=== PATIENT | male | born 1945 | race Caucasian/White ===

== ENCOUNTER 2018-07-01 03:07 | Observation (INO) ==
[2018-07-01] MEDS ORDERED: Ipratropium/Albuterol Neb 3 ML IH ONE (03:13)
[2018-07-01] MEDS ORDERED: methylPREDNISolone 125 MG/2 ML VIAL IVP ONE (03:13)
--- NOTE | 2018-07-01 03:26 | Emergency Department Note ---
Disposition Clinical Impression: Elevated troponin, Acute exacerbation of chronic obstructive airways disease Dyspnea Qualifiers: Dyspnea type: unspecified Qualified Code(s): R06.00 - Dyspnea, unspecified Disposition: Admitted As Inpatient Condition: Fair Forms: ED Satisfaction Letter General Adult HPI - General Stated complaint: SoB Time Seen by Provider: 07/01/18 03:12 Source: patient, EMS Mode of arrival: EMS Limitations: no limitations Nursing Notes Reviewed: Yes Vital Signs Reviewed: Yes - History of Present Illness HPI Narrative: Patient is a 72-year-old male with past medical history including COPD on 2-3 L of oxygen at home, hypertension, coronary artery disease with one stent placement, presenting with chief complaint of shortness of breath since midnight. The patient states he was admitted for approximately one month in [facility] for COPD exacerbation, bronchitis, pneumonia. He states he was discharged on oral prednisone and azithromycin which she finished up one week ago. He recently returned back to [place] and in good health. He states when he woke up at midnight he was starting to feel short of breath. He complains of a new productive cough. Denies fevers, chills, chest pain. Shortness of breath worsens with exertion. He did not take any breathing treatments at home and went [place] [facility]. As the [place] [facility] [place] closed, he was transferred via EMS to [facility]. He received one breathing treatment in route and states he feels better. Pain Scale: 0 - Related Data Allergies Allergy/AdvReac Type Severity Reaction Status Date / Time No Known Allergies Allergy Verified 07/01/18 03:19 All systems ED: reviewed and negative except as stated. Review of Systems: As Per HPI Constitutional: Denies: fever, chills Cardiovascular: Denies: chest pain, palpitations Respiratory: Reports: cough, dyspnea Gastrointestinal: Denies: abdominal pain, nausea, vomiting Neurological: Denies: headache, weakness Past Medical History - Past Medical History Attestation: Yes The following information was validated with the patient. Source: patient Medical history: Reports: COPD Psychiatric history: Reports: no psych history - Social History Smoking Status: Former smoker Smokeless Tobacco Status: No Alcohol use: Reports: none Drug use: Reports: none Physical Exam - General Limitations: no limitations General appearance: alert, in no apparent distress - Head Head exam: atraumatic, normocephalic, normal inspection - Eye Eye exam: Present: normal appearance, EOMI - ENT ENT exam: normal exam, normal oropharynx, mucous membranes moist - Neck Neck exam: Present: normal inspection, full ROM, trachea midline - Respiratory Respiratory exam: Present: other (Mild bilateral expiratory wheezing and diminished breath sounds) - Cardiovascular Cardiovascular exam: Present: regular rate, normal rhythm, normal heart sounds - Abdominal Exam Abdominal exam: Present: soft, Non-Tender. Absent: tenderness, distention, guarding, rebound, rigidity - Extremities Exam Extremities exam: Present: normal inspection, full ROM, normal capillary refill. Absent: tenderness, pedal edema, calf tenderness - Neurological Exam Neurological exam: Present: alert, oriented X3 - Psychiatric Psychiatric exam: Present: normal affect, normal mood - Skin Skin exam: Present: warm, dry, intact, normal color Course Vital Signs Temperature 98.2 F 07/01/18 03:15 Pulse Rate 104 07/01/18 03:15 Respiratory Rate 20 07/01/18 03:15 Blood Pressure 167/80 07/01/18 03:15 O2 Sat by Pulse Oximetry 97 07/01/18 03:15 Temperature 98.2 F 07/01/18 03:15 Pulse Rate 104 07/01/18 03:15 Respiratory Rate 14 07/01/18 03:46 Blood Pressure 167/80 07/01/18 03:15 O2 Sat by Pulse Oximetry 98 07/01/18 03:46 Oxygen Delivery Oxygen Delivery Nasal Cannula Medical Decision Making - [facility] Narrative Medical decision making narrative: Patient presenting with shortness of breath or new cough. He is afebrile. Oxygenating on his home oxygen at 3 L and is not hypoxic. Likely has COPD exacerbation. We will give methylprednisolone, DuoNeb treatments obtain x-ray. 0425 Chest x-ray shows trace left pleural effusion. There are no infiltrates or pulmonary hypertension. CBC with no leukocytosis. Patient remains on 2 L of oxygen and not hypoxic. Feeling better after Duoneb treatments. 0435 EKG shows no acute ischemic changes. He denies chest pain. Troponin is elevated 0.07. No prior labs to compare to. Patient will be admitted for ACS evaluation. Hospitalist will be consulted. Aspirin will be given. 05:[address] Montenegro who accepts admission. - Medical Records Medical records reviewed: Yes I reviewed the patient's medical records. - Lab Data Lab results reviewed: Yes I reviewed the patient's lab results. Result diagrams: 07/01/18 03:50 07/01/18 03:50 Lab Results 07/01/18 07/01/18 Range/Units 03:50 03:50 WBC 9.8 (4.3-11.1) K/mcL RBC 4.96 (4.19-5.50) M/mcL Hgb 14.6 (12.9-16.9) g/dL Hct 46.8 (37.5-50.1) % MCV 94.4 (83.0-100.0) fL MCH 29.4 (28.0-33.3) pg MCHC 31.2 L (31.6-35.5) g/dL RDW 21.4 H (11.5-14.5) % Plt Count 174 (140-400) K/mcL MPV 11.7 (9.4-12.4) fL Immature Gran % 0.4 (0-4) % Seg Neutrophils % 63.3 % Lymphocytes % 21.1 % Monocytes % 11.2 % Eosinophils % 3.4 % Basophils % 0.6 % Neutrophils # 6.2 (1.6-8.9) K/mcL Lymphocytes # 2.1 (0.6-4.6) K/mcL Monocytes # 1.1 (0.0-1.3) K/mcL Eosinophils # 0.3 (0.0-0.6) K/mcL Basophils # 0.1 (0.0-0.2) K/mcL Sodium 144 (136-145) mEq/L Potassium 4.0 (3.5-5.1) mEq/L Chloride 109 H (98-107) mEq/L Carbon Dioxide 28 (23-29) mEq/L BUN 13 (8-23) mg/dL Creatinine 1.24 (0.70-1.30) mg/dL Est GFR ( Amer) > 60 (> 60) Est GFR (Non-Af Amer) 57 L (> 60) BUN/Creatinine Ratio 10 (6-26) Glucose 100 (70-105) mg/dL Calculated Osmolality 298 (280-300) Calcium 8.5 L (8.6-10.3) mg/dL Troponin I 0.07 H* (< 0.04) ng/mL - Radiology Data Radiology results reviewed: Yes I reviewed the patient's radiology results. Chest X-Ray 07/01/18 03:13 IMPRESSION: Trace left pleural effusion. No focal airspace disease. D/ / Rodo Hillman / Rodo Hillman Interpreting Provider: Rodo Hillman - EKG Data EKG #1 EKG attestation: Yes I reviewed and interpreted this EKG. EKG results narrative: EKG obtained at 0 326 shows sinus rhythm with heart rate 96. MA interval 137, QRS duration 87, QT 377, QTC 477. Left posterior fascicular block. No ST elevation, no ST depression. No old EKG to compare to. Attestation Statement - Attestation Attestation: Dr Hsieh note: Pt seen in conjunction w/ ER Resident Dr Olson; please see her charting for complete documentation. I spent [id number] time with the patient and I agree with patient's treatment and disposition. Acute sob and diaphoresis after mi dnight tonight; known/ prior CAD w/ stents placed years ago;
[2018-07-01 04:02] LABS: Basophils # 0.1 K/mcL (0.0-0.2); Basophils % 0.6 %; Eosinophils # 0.3 K/mcL (0.0-0.6); Eosinophils % 3.4 %; Hematocrit 46.8 % (37.5-50.1); Hemoglobin 14.6 g/dL (12.9-16.9); Immature Granulocytes % 0.4 % (0-4); Lymphocytes # 2.1 K/mcL (0.6-4.6); Lymphocytes % 21.1 %; Mean Corpuscular HGB Conc 31.2 g/dL (31.6-35.5); Mean Corpuscular Hemoglobin 29.4 pg (28.0-33.3); Mean Corpuscular Volume 94.4 fL (83.0-100.0); Mean Platelet Volume 11.7 fL (9.4-12.4); Monocytes # 1.1 K/mcL (0.0-1.3); Monocytes % 11.2 %; Neutrophils # 6.2 K/mcL (1.6-8.9); Platelet Count 174 K/mcL (140-400); Red Blood Count 4.96 M/mcL (4.19-5.50); Red Cell Distribution Width 21.4 % (11.5-14.5); Segmented Neutrophils % 63.3 %
[2018-07-01 04:37] LABS: BUN/Creatinine Ratio 10 (6-26); Blood Urea Nitrogen 13 mg/dL (8-23); Calcium 8.5 mg/dL (8.6-10.3); Carbon Dioxide 28 mEq/L (23-29); Chloride 109 mEq/L (98-107); Glucose 100 mg/dL (70-105); Osmolality,Calculated 298 (280-300); Sodium 144 mEq/L (136-145); Troponin I 0.07 ng/mL (< 0.04); eGFR For Non-African Americans 57 (> 60)
[2018-07-01] MEDS ORDERED: Aspirin 325 MG TABLET PO ONE (05:12)
[2018-07-01] MEDS ORDERED: *HR* HYDROcodone/Acet 5/325 mg TABLET PO PRN (07:27)
[2018-07-01] MEDS ORDERED: Naloxone 0.4 MG/ML INJ IVP PRN (07:27)
[2018-07-01] MEDS ORDERED: Acetaminophen 325 MG TABLET PO PRN (07:27)
--- NOTE | 2018-07-01 08:32 | Internal Med History&Physical ---
Date of Encounter: 07/01/18 Time of Encounter: 08:29 Internal Medicine - H&P: HPI Chief complaint: Dyspnea Admitted From: Emergency Dept Plans for Post Hospital Care: Home History of present illness: Mr. Hunter is a 72 year old male with past medical history including COPD on 2- 3 L of oxygen at home, hypertension, coronary artery disease with one stent placement who presents with shortness of breath since midnight. He reports productive cough. He hears himself wheezing. He is nauseous. He recently was in [place] and admitted for COPD exacerbation. Recently finished prednison and azithromax about a week ago. He recently returned back to [place]. He woke up at midnight and he was short of breath. Denies any headache, fevers, chills, vomiting, chest pain, abdominal pain, diarrhea, constipation, urinary symptoms, or neurological symptoms symptoms, dizziness, lower extremity edema. In the ED he was hemodynamically stable. Chest x-ray was unremarkable. He was given IV steroids and nebs and started feeling better. Labs were mostly unremarkable but he did have somewhat elevated troponins of 0.07 but denies any chest pain. EKG without any acute ischemic changes. He was given aspirin however. Past Med Surg Social Fam HX - Past Medical History Medical history: COPD Psychiatric history: no psych history - Social History Smoking Status: Former smoker Smokeless Tobacco Status: No Alcohol use: none Drug use: none Internal Medicine - H&P: Meds Allergy/AdvReac Type Severity Reaction Status Date / Time No Known Allergies Allergy Verified 07/01/18 03:19 All Systems PM: A 10-system review of systems was performed and is negative for pertinent findings except as documented above in the HPI. Review of systems: All systems reviewed are negative except for as mentioned above - Constitutional Vitals: Temp Pulse Resp BP Pulse Ox 97.8 F 94 18 166/70 95 07/01/18 07:00 07/01/18 07:00 07/01/18 07:00 07/01/18 07:00 07/01/18 07:00 Exam: GEN: NAD HEENT: AT, NC, No cyanosis, oral mucosa is moist, No JVD Lymphatics: No lymphadenoapthy Eyes: Extrocular muscles intact, anicteric CVS:RRR. S1, S2, No m/r/g RESP: Diminished with scattered posterior wheezes ABD: Soft, NT, ND, +BS EXT: No edema, No rashes, 2+ DP NEURO: Nonfocal, CN II-XII intact, No focal motor or sensory deficits Psych: Cooperative, Not anxious or depressed Internal Med - H&P Results - Labs CBC & Chem 7: 07/01/18 03:50 07/01/18 03:50 Labs: Short CBC 07/01/18 Range/Units 03:50 WBC 9.8 (4.3-11.1) K/mcL Hgb 14.6 (12.9-16.9) g/dL Hct 46.8 (37.5-50.1) % Plt Count 174 (140-400) K/mcL Neutrophils # 6.2 (1.6-8.9) K/mcL BMP 07/01/18 03:50 Sodium 144 Potassium 4.0 Chloride 109 H Carbon Dioxide 28 BUN 13 Creatinine 1.24 Glucose 100 Calcium 8.5 L Cardiac Enzymes 07/01/18 Range/Units 03:50 Troponin I 0.07 H* (< 0.04) ng/mL - Impressions ITS Impressions Chest X-Ray 07/01/18 03:13 IMPRESSION: Trace left pleural effusion. No focal airspace disease. D/ / Rodo Hillman / Rodo Hillman Interpreting Provider: Rodo Hillman - Assessment and Plan (1) Acute exacerbation of chronic obstructive airways disease Current Visit: Yes Status: Acute Assessment and plan: Patient seems very uncomfortable but surprsingly is not hypoxic in the room on room air. He is O2 dependent. He is significantly wheezy. Will put on IV steroids Q8hrs. Nebs scheduled. Check sputum. check resp panel. Recently finished a course of azithromax. (2) Elevated troponin Current Visit: Yes Status: Acute Assessment and plan: Likely NSTEMI type II. No concerning EKG changes. Will trend for now. (3) HTN (hypertension) Current Visit: Yes Status: Acute Assessment and plan: c/w home meds Qualifiers: Hypertension type: essential hypertension Qualified Code(s): I10 - Essential (primary) hypertension (4) CAD (coronary artery disease) Current Visit: Yes Status: Acute Assessment and plan: c/w home meds Qualifiers: Coronary Disease-Associated Artery/Lesion type: [place] artery [place] vs. transplanted heart: [place] heart Associated angina: without angina Qualified Code(s): I25.10 - Atherosclerotic heart disease of [place] coronary artery without angina pectoris (5) Tobacco abuse Current Visit: Yes Status: Acute Assessment and plan: nicotine patch ordered (6) DVT prophylaxis Current Visit: Yes Status: Acute Assessment and plan: heparin SQ - Time Spent With Patient Total time spent is greater than 50% in coordination of care (as documented) at patient's floor/unit and/or counseling patient:
[2018-07-01] MEDS: Ondansetron 4 MG/2 ML VIAL IVP PRN ×2 (08:54→13:48)
[2018-07-01] MEDS: methylPREDNISolone 125 MG/2 ML VIAL IVP SCH ×2 (08:54→16:56)
[2018-07-01] MEDS: Ipratropium/Albuterol Neb 3 ML IH SCH ×3 (10:01→21:26)
[2018-07-01] MEDS: Nicotine 21 MG PATCH.TD24 TD SCH (11:38)
[2018-07-01] MEDS: *HR* Heparin 5,000 UNIT/ML VIAL SQ SCH ×2 (13:52→21:01)
[2018-07-01] MEDS: Ascorbic Acid 500 MG TABLET PO SCH (16:56)
--- NOTE | 2018-07-01 17:33 | Electrocardiograph Report ---
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
[2018-07-01 18:58] LABS: ABG Base Excess 4 mEq/L (-2 to 3); ABG HCO3 32 mEq/L (21-27); ABG Oxygen Saturation 94 % (95-98); ABG PCO2 58 mmHg (35-45); ABG PH 7.35 pH Units (7.32-7.45); ABG PO2 74 mmHg (85-104); ABG TCO2 34 mEq/L (20-26)
[2018-07-01 19:38] LABS: Adenovirus Not Detected (Not Detect); Bordetella Pertussis Not Detected (Not Detect); Chlamydophila pneumoniae Not Detected (Not Detect); Coronavirus 229E Not Detected (Not Detect); Coronavirus HKU1 Not Detected (Not Detect); Coronavirus NL63 Not Detected (Not Detect); Coronavirus OC43 Not Detected (Not Detect); Human Metapneumovirus Not Detected (Not Detect); Human Rhinovirus/Enterovirus Not Detected (Not Detect); Influenza A Subtype 2009 H1 Not Detected (Not Detect); Influenza A Untypeable Not Detected (Not Detect); Influenza B Not Detected (Not Detect); Mycoplasma pneumoniae Not Detected (Not Detect); Parainfluenza Virus 1 Not Detected (Not Detect); Parainfluenza Virus 2 Not Detected (Not Detect); Parainfluenza Virus 3 Not Detected (Not Detect); Parainfluenza Virus 4 Not Detected (Not Detect); Respiratory Syncytial Virus Not Detected (Not Detect)
[2018-07-01] MEDS: 0.9 % Sodium Chloride 1,000 ML IVC SCH (20:13)
[2018-07-01] MEDS ORDERED: FERROUS GLUCONATE 324 MG PO SCH (21:00)
[2018-07-01] MEDS ORDERED: Ascorbic Acid 500 MG TABLET PO SCH (21:00)
[2018-07-01] MEDS: Budesonide/Formoterol 160/4.5 1 PUFF INH IH SCH (21:26)
[2018-07-02] MEDS: methylPREDNISolone 125 MG/2 ML VIAL IVP SCH ×2 (01:34→08:35)
[2018-07-02] MEDS: Ipratropium/Albuterol Neb 3 ML IH SCH ×4 (04:24→22:12)
[2018-07-02] MEDS: 0.9 % Sodium Chloride 1,000 ML IVC SCH (04:53)
[2018-07-02] MEDS: *HR* Heparin 5,000 UNIT/ML VIAL SQ SCH ×3 (04:54→20:53)
[2018-07-02 05:23] LABS: BUN/Creatinine Ratio 14 (6-26); Blood Urea Nitrogen 16 mg/dL (8-23); Carbon Dioxide 27 mEq/L (23-29); Chloride 105 mEq/L (98-107); Glucose 123 mg/dL (70-105); Magnesium 2.1 mg/dL (1.6-2.6); Osmolality,Calculated 297 (280-300); Potassium 5.2 mEq/L (3.5-5.1); Sodium 142 mEq/L (136-145); eGFR For Non-African Americans > 60 (> 60)
[2018-07-02 05:27] LABS: Basophils % 0.1 %; Hematocrit 47.1 % (37.5-50.1); Hemoglobin 14.9 g/dL (12.9-16.9); Immature Granulocytes % 1.1 % (0-4); Immature Platelets 7.7 % (1.1-6.1); Lymphocytes # 0.5 K/mcL (0.6-4.6); Lymphocytes % 6.6 %; Mean Corpuscular HGB Conc 31.6 g/dL (31.6-35.5); Mean Corpuscular Hemoglobin 29.4 pg (28.0-33.3); Mean Corpuscular Volume 92.9 fL (83.0-100.0); Mean Platelet Volume 12.2 fL (9.4-12.4); Monocytes # 0.4 K/mcL (0.0-1.3); Monocytes % 5.2 %; Neutrophils # 6.9 K/mcL (1.6-8.9); Platelet Count 133 K/mcL (140-400); Red Blood Count 5.07 M/mcL (4.19-5.50); Red Cell Distribution Width 20.4 % (11.5-14.5)
[2018-07-02] MEDS ORDERED: Saline Nasal Spray 44 ML BOTTLE NS PRN (08:00)
--- NOTE | 2018-07-02 08:24 | Internal Med Progress Note ---
<Azalia Taveras - Last Filed: 07/02/18 12:03> Hospitalist Progress Note - Encounter Date of Encounter: 07/02/18 - Exam Vitals: Temp Pulse Resp BP Pulse Ox 98.5 F 108 18 122/62 90 07/02/18 11:22 07/02/18 11:22 07/02/18 11:22 07/02/18 11:22 07/02/18 11:22 - Assessment and Plan (1) Elevated troponin Current Visit: Yes Status: Acute (2) Acute exacerbation of chronic obstructive airways disease Current Visit: Yes Status: Acute (3) Tobacco abuse Current Visit: Yes Status: Acute (4) HTN (hypertension) Current Visit: Yes Status: Acute (5) CAD (coronary artery disease) Current Visit: Yes Status: Acute (6) DVT prophylaxis Current Visit: Yes Status: Acute (7) Chronic respiratory failure Current Visit: Yes Status: Acute - Time Spent with Patient Total time spent is greater than 50% in coordination of care (as documented) at patient's floor/unit and/or counseling patient: Internal Medicine: Result - Labs CBC & Chem 7: 07/02/18 04:19 07/02/18 09:03 Labs: Short CBC 07/02/18 Range/Units 04:19 WBC 7.9 (4.3-11.1) K/mcL Hgb 14.9 (12.9-16.9) g/dL Hct 47.1 (37.5-50.1) % Plt Count 133 L (140-400) K/mcL Neutrophils # 6.9 (1.6-8.9) K/mcL BMP 07/02/18 07/02/18 04:19 09:03 Sodium 142 Potassium 5.2 H 4.9 Chloride 105 Carbon Dioxide 27 BUN 16 Creatinine 1.14 Glucose 123 H Calcium 9.0 Cardiac Enzymes 07/01/18 Range/Units 15:05 Troponin I < 0.03 (< 0.04) ng/mL - ABG Interpretation ABG results: ABG ABG pH 7.35 pH Units (7.32-7.45) 07/01/18 18:55 ABG pCO2 58 mmHg (35-45) H 07/01/18 18:55 ABG pO2 74 mmHg (85-104) L 07/01/18 18:55 ABG O2 Saturation 94 % (95-98) L 07/01/18 18:55 - Impressions Impressions Chest X-Ray 07/01/18 03:13 IMPRESSION: Trace left pleural effusion. No focal airspace disease. D/ / Rodo Hillman / Rodo Hillman Interpreting Provider: Rodo Hillman Consult Discharge Plan - Plan [facility]errals: [facility]Primary Care Provider[facility] - <Payal Mcguire N - Last Filed: 07/02/18 13:59> Hospitalist Progress Note - Encounter Date of Encounter: 07/02/18 Time of Encounter: 08:24 - Subjective Interval History: Mr. Hunter is a 72-year-old male with a history of COPD who was admitted to the hospital for management of COPD exacerbation. On evaluation this morning, patient reports improvement in symptoms after receiving nebulized breathing treatments, and reports resolution of wheezes at this time. He is currently requiring supplemental oxygen via nasal cannula; however, patient states that he only uses oxygen at home during the night. He reports having recently been bruno ated with a course of azithromycin on an outpatient basis, which she states did not seem to help his breathing. At this time, patient denies any wheezes, shortness of breath, cough, or other respiratory symptoms. He denies any acute complaints or concerns at this time. - Exam Vitals: Temp Pulse Resp BP Pulse Ox 97.9 F 111 16 144/68 91 07/02/18 07:44 07/02/18 07:44 07/02/18 07:44 07/02/18 07:44 07/02/18 07:44 Exam: GENERAL: Well-developed, well-nourished adult male in no acute distress. HEENT: Atraumatic and normocephalic. CARDIOVASCULAR: Regular rate and rhythm. S1 and S2 present. No murmurs, gallops, or rubs. RESPIRATORY: Diffusely decreased breath sounds bilaterally without wheezes. Chest rises and falls symmetrically without accessory muscle use. GASTROINTESTINAL: Abdomen is soft, nontender, nondistended. Bowel sounds present 4 quadrants. EXTREMITIES: No clubbing, cyanosis, or edema. SKIN: Warm, dry, and intact. NEUROLOGIC: Alert and oriented x3. Patient is cooperative with exam and answers questions appropriately. No apparent focal deficits. PSYCHIATRIC: Appropriate mood and affect. - Assessment and Plan (1) Acute exacerbation of chronic obstructive airways disease Current Visit: Yes Status: Acute Assessment and Plan: Suspect acute exacerbation of COPD. Patient reports waking in the middle the night with significant wheezing and shortness of breath. He did receive nebulized breathing treatments emergency department, which improved his symptoms. On evaluations morning, patient reports that he has not had any wheezing, and states that he is feeling well. He denies any ongoing shortness of breath. He reports that he uses supplemental oxygen at home at night. He does note significant shortness of breath associated with periods of exertion. - D/c IV steroids; start prednisone 40mg BID. Anticipate discharge with two-week taper of oral steroids. - Continue duonebs Q6H scheduled. Patient would benefit from a prescription for duonebs on hospital discharge. - Continue supplemental oxygen therapy as needed to maintain oxygen saturation 88-92%. (2) Elevated troponin Current Visit: Yes Status: Acute Assessment and Plan: Suspect type II NSTEMI. Initial troponin noted to be elevated at 0.07; however, repeat troponins demonstrated downward trend. Patient denied any chest pain, and had no EKG changes. - Continue telemetry monitoring. - Obtain repeat EKG and troponin if patient begins to have symptoms concerning for ACS. (3) HTN (hypertension) Current Visit: Yes Status: Acute Assessment and Plan: - Continue home medication of metoprolol 25mg. (4) CAD (coronary artery disease) Current Visit: Yes Status: Acute Assessment and Plan: - Continue home medication of atorvastatin 20mg. (5) Tobacco abuse Current Visit: Yes Status: Acute Assessment and Plan: - Tobacco cessation counseling provided. - Nicotine patch TD QD. (6) DVT prophylaxis Current Visit: Yes Status: Acute Assessment and Plan: - Heparin SQ. - Time Spent with Patient Total time spent is greater than 50% in coordination of care (as documented) at patient's floor/unit and/or counseling patient: Internal Medicine: Result - Labs CBC & Chem 7: 07/02/18 04:19 07/02/18 09:03 Labs: Short CBC 07/02/18 Range/Units 04:19 WBC 7.9 (4.3-11.1) K/mcL Hgb 14.9 (12.9-16.9) g/dL Hct 47.1 (37.5-50.1) % Plt Count 133 L (140-400) K/mcL Neutrophils # 6.9 (1.6-8.9) K/mcL BMP 07/02/18 04:19 Sodium 142 Potassium 5.2 H Chloride 105 Carbon Dioxide 27 BUN 16 Creatinine 1.14 Glucose 123 H Calcium 9.0 Cardiac Enzymes 07/01/18 07/01/18 Range/Units 09:13 15:05 Troponin I 0.05 H* < 0.03 (< 0.04) ng/mL - ABG Interpretation ABG results: ABG ABG pH 7.35 pH Units (7.32-7.45) 07/01/18 18:55 ABG pCO2 58 mmHg (35-45) H 07/01/18 18:55 ABG pO2 74 mmHg (85-104) L 07/01/18 18:55 ABG O2 Saturation 94 % (95-98) L 07/01/18 18:55 <Azalia Taveras M - Last Filed: 07/02/18 12:03> (4) HTN (hypertension) Qualifiers: Hypertension type: essential hypertension Qualified Code(s): I10 - Essential (primary) hypertension (5) CAD (coronary artery disease) Qualifiers: Coronary Disease-Associated Artery/Lesion type: [place] artery [place] vs. transplanted heart: [place] heart Associated angina: without angina Qualified Code(s): I25.10 - Atherosclerotic heart disease of [place] coronary artery without angina pectoris <Payal Mcguire N - Last Filed: 07/02/18 13:59> (3) HTN (hypertension) Qualifiers: Hypertension type: essential hypertension Qualified Code(s): I10 - Essential (primary) hypertension (4) CAD (coronary artery disease) Qualifiers: Coronary Disease-Associated Artery/Lesion type: [place] artery [place] vs. transplanted heart: [place] heart Associated angina: without angina Qualified Code(s): I25.10 - Atherosclerotic heart disease of [place] coronary artery without angina pectoris
[2018-07-02] MEDS: Ascorbic Acid 500 MG TABLET PO SCH ×2 (08:32→17:37)
[2018-07-02] MEDS: Metoprolol XL (24 HR) Succ 25 MG TAB.ER.24H PO SCH (08:33)
[2018-07-02] MEDS: Nicotine 21 MG PATCH.TD24 TD SCH (08:35)
--- NOTE | 2018-07-02 09:08 | Event Note ---
Date of Encounter: 07/02/18 Time of Encounter: 09:05 Patient was seen and examined. Agree with the progress note as written by the resident physician. No acute events. Patient has a dry cough. feeling better. Admitted yesterday for COPD exacerbation and is being treated with IV steroids and nebs. Remains on about 2-3 L nasal cannula oxygen which is chronic needs. Nausea is much improved. GEN: NAD CVS: RRR. S1, S2, No m/r/g RESP: Diminished ABD: Soft, NT, ND, +BS EXT: No edema. 2+ DP, No rashes NEURO: Nonfocal Continue IV steroids and can wean down to 212 hours. Continue scheduled nebs Mucinex added Monitor K+ Nicotine patch Zofran IV PRN Continue home meds DVT prophylaxis d/c tomorrow
[2018-07-02] MEDS: Budesonide/Formoterol 160/4.5 1 PUFF INH IH SCH ×2 (10:14→22:12)
[2018-07-02] MEDS: predniSONE 20 MG TABLET PO SCH (17:37)
[2018-07-03] MEDS: Ipratropium/Albuterol Neb 3 ML IH SCH ×2 (04:41→10:13)
[2018-07-03] MEDS: *HR* Heparin 5,000 UNIT/ML VIAL SQ SCH (05:48)
[2018-07-03 07:53] LABS: Basophils % 0.1 %; Hematocrit 47.2 % (37.5-50.1); Hemoglobin 14.6 g/dL (12.9-16.9); Immature Granulocytes % 0.5 % (0-4); Lymphocytes # 0.7 K/mcL (0.6-4.6); Lymphocytes % 4.1 %; Mean Corpuscular HGB Conc 30.9 g/dL (31.6-35.5); Mean Corpuscular Volume 93.8 fL (83.0-100.0); Mean Platelet Volume 11.6 fL (9.4-12.4); Monocytes % 5.8 %; Neutrophils # 15.2 K/mcL (1.6-8.9); Platelet Count 170 K/mcL (140-400); Red Blood Count 5.03 M/mcL (4.19-5.50); Red Cell Distribution Width 20.9 % (11.5-14.5); Segmented Neutrophils % 89.5 %
--- NOTE | 2018-07-03 08:07 | Discharge Summary ---
<Payal Mcguire N - Last Filed: 07/03/18 17:04> - NOTES TO OUTPATIENT PROVIDER Notes to Outpatient Provider: Patient was admitted to the hospital for management of acute COPD exacerbation. He improved with nebulized breathing treatments and steroids. He was discharged with prescription for DuoNebs Q6H PRN and 2 week taper of oral prednisone. Patient was noted to have increased serum creatinine on day of discharge; however, he endorsed history of chronic kidney disease and stated that this is his baseline. Patient was discharged with order to have repeat metabolic panel performed in approximately 1 week to follow up with PCP. Orders not resulted at time of discharge: Pending orders 07/03/18 06:26 BMP [Basic Metabolic Panel] AM 0400 Date of Encounter: 07/03/18 Time of Encounter: 08:03 - Discharge Diagnosis (1) Acute exacerbation of chronic obstructive airways disease Priority: Primary Status: Acute (2) Elevated troponin Priority: Secondary Status: Acute (3) HTN (hypertension) Priority: Secondary Status: Acute Qualifiers: Hypertension type: essential hypertension Qualified Code(s): I10 - Essential (primary) hypertension (4) CAD (coronary artery disease) Priority: Secondary Status: Acute Qualifiers: Coronary Disease-Associated Artery/Lesion type: [place] artery [place] vs. transplanted heart: [place] heart Associated angina: without angina Qualified Code(s): I25.10 - Atherosclerotic heart disease of [place] coronary artery without angina pectoris Hospital course: Mr. Hunter is a 72-year-old male with a history of COPD who was admitted to the hospital for management of COPD exacerbation. Patient stated that he presented to the emergency department after waking up and then elevated the night acutely short of breath. He reported having recently completed a course of azithromycin for similar symptoms; however, he denied any improvement with this therapy. Patient received duonebs and IV steroids in the emergency department, with good improvement in symptoms. On day of discharge, patient denies any fevers, chills, shortness of breath, chest congestion, or wheezing. He was noted to have a slight increase in serum creatinine; however, patient reported history of chronic kidney disease and stated that this was his baseline. Patient is established at the [facility]; therefore, outpatient records could not be obtained. Andres marlow was encouraged to drink plenty of water, and have repeat metabolic panel performed approximately 1 week after hospital discharge, to follow-up with his PCP to ensure resolution of elevated serum creatinine. He was discharged with prescription for PRN DuoNeb's and 2 week taper of oral prednisone. Patient was offered prescription for nicotine patch; however, he told nursing staff that he was not interested in smoking cessation at this time. - Time Spent with Patient Total time spent providing and/or coordinating discharge services: - Discharge Medications Prescriptions: New RX: Ipratropium/Albuterol Neb [Duoneb] 3 ml IH [id number] #30 inhsol RX: Nicotine Patch [Nicoderm] 21 mg TD DAILY #30 patch.td24 predniSONE [PredniSONE] 10 mg PO DAILY #30 tablet Continue RX: Roflumilast [Daliresp] 500 mcg PO DAILY RX: Pantoprazole Sodium [Protonix] 40 mg PO DAILY RX: Metoprolol Succinate [Toprol Xl] 25 mg PO DAILY RX: Ferrous Gluconate 324 mg PO BID RX: Budesonide/Formoterol 160/4.5 [Symbicort 160/4.5] 2 puff IH BID RX: Atorvastatin Calcium [Lipitor] 20 mg PO HS RX: Ascorbic Acid [Vitamin C] 500 mg PO BID RX: Albuterol Sulfate [Albuterol Inhaler] 2 puff IH Q4H PRN PRN Reason: Shortness Of Breath RX: Tiotropium [place] [Spiriva Respimat] 2 puff IH DAILY Home Medications: RX: Albuterol Sulfate [Albuterol Inhaler] 2 puff IH Q4H PRN 07/01/18 [History] RX: Ascorbic Acid [Vitamin C] 500 mg PO BID 07/01/18 [History] RX: Atorvastatin Calcium [Lipitor] 20 mg PO HS 07/01/18 [History] RX: Budesonide/Formoterol 160/4.5 [Symbicort 160/4.5] 2 puff IH BID 07/01/18 [History] RX: Ferrous Gluconate 324 mg PO BID 07/01/18 [History] RX: Metoprolol Succinate [Toprol Xl] 25 mg PO DAILY 07/01/18 [History] RX: Pantoprazole Sodium [Protonix] 40 mg PO DAILY 07/01/18 [History] RX: Roflumilast [Daliresp] 500 mcg PO DAILY 07/01/18 [History] RX: Tiotropium [place] [Spiriva Respimat] 2 puff IH DAILY 07/01/18 [History] RX: Ipratropium/Albuterol Neb [Duoneb] 3 ml IH [id number] #30 inhsol 07/03/18 [Rx] RX: Nicotine Patch [Nicoderm] 21 mg TD DAILY #30 patch.td24 07/03/18 [Rx] predniSONE [PredniSONE] 10 mg PO DAILY #30 tablet 07/03/18 [Rx] Allergies/Adverse Reactions: Allergy/AdvReac Type Severity Reaction Status Date / Time No Known Allergies Allergy Verified 07/02/18 11:44 Date of admission: 07/01/18 06:09 [facility] care physician: [facility] Consults: 07/01/18 08:52 Consult to Nurse Navigator [CONS] Routine Comment: COPD Discharging clinician: Payal Mcguire Anticipated date of discharge: 07/03/18 - Constitutional Vitals: Temp Pulse Resp BP Pulse Ox 98 F 98 20 161/71 91 07/03/18 06:28 07/03/18 06:28 07/03/18 06:28 07/03/18 06:28 07/03/18 06:28 Exam: GENERAL: Well-developed, well-nourished adult male in no acute distress. HEENT: Atraumatic and normocephalic. CARDIOVASCULAR: Regular rate and rhythm. S1 and S2 present. No murmurs, gallops, or rubs. RESPIRATORY: Diffusely decreased breath sounds bilaterally without wheezes. Chest rises and falls symmetrically without accessory muscle use. GASTROINTESTINAL: Abdomen is soft, nontender, nondistended. Bowel sounds present 4 quadrants. EXTREMITIES: No clubbing, cyanosis, or edema. SKIN: Warm, dry, and intact. NEUROLOGIC: Alert and oriented x3. Patient is cooperative with exam and answers questions appropriately. No apparent focal deficits. PSYCHIATRIC: Appropriate mood and affect. - Patient Status Disposition: Home, Self-Care Condition: Fair Functional capacity at discharge: independent ambulation Overall status at discharge: patient is progressing back to baseline - Ambulatory Orders Ambulatory Orders: Basic Metabolic Panel [CHEM] Time Frame: 07/08/18, Location: Determined By Patient - Discharge Instructions Instructions: Prednisone (By mouth), How to Stop Smoking (DC), Chronic Obstructive Pulmonary Disease (DC) Follow [facility]: [facility] [Primary Care Provider] - Forms: ED Satisfaction Letter Additional Instructions: Follow-up with your primary care provider in 3-5 days for reevaluation. Have repeat metabolic panel drawn in approximately 1 week to ensure returned to baseline creatinine. Continue taking oral prednisone as follows: take 40 mg daily for 3 days, then take 30 mg daily for 3 days, then take 20 mg daily for 3 days, then take 10 mg daily for 3 days, then stop. Use DuoNeb's breathing treatments every 6 hours as needed for shortness of breath and/or wheezing. Return to the emergency department if you develop worsening symptoms, increased chest congestion, fevers, chills, chest pain, or if new concerns arise. - Diet and Activity Activity: increase activity as tolerated Diet: low fat, low cholesterol <Azalia Taveras - Last Filed: 07/03/18 18:56> Date of Encounter: 07/03/18 - Discharge Diagnosis (1) Elevated troponin Status: Acute (2) Acute exacerbation of chronic obstructive airways disease Status: Acute (3) HTN (hypertension) Status: Acute Qualifiers: Hypertension type: essential hypertension Qualified Code(s): I10 - Essential (primary) hypertension (4) CAD (coronary artery disease) Status: Acute Qualifiers: Coronary Disease-Associated Artery/Lesion type: [place] artery [place] vs. transplanted heart: [place] heart Associated angina: without angina Qualified Code(s): I25.10 - Atherosclerotic heart disease of [place] coronary artery [facility] angina pectoris Hospital course: Mr. Hunter is a 72 year old male - Time Spent with Patient Total time spent providing and/or coordinating discharge services: Time spent: Greater than 30 minutes Date of admission: 07/01/18 06:09 Primary care physician: [facility] Consults: 07/01/18 08:52 Consult to Nurse Navigator [CONS] Routine Comment: COPD - Constitutional Vitals: Temp Pulse Resp BP Pulse Ox 97.9 F 98 20 166/73 93 07/03/18 11:16 07/03/18 11:16 07/03/18 11:16 07/03/18 11:16 07/03/18 11:16 - Attending Attestation Patient was seen and examined. I agree with the discharge document as written by the resident physician. Patient admitted with shortness of breath. Treated for COPD exacerbation. managed with solu-medrol and nebs. Was better after two days. Discharged on prednisone taper. Noted to have elevated creatinine but history of CKD3. Repeat BMP is requested in 1 week. GEN: NAD CVS: RRR. S1, S2, No m/r/g RESP: CTAB ABD: Soft, NT, ND, +BS EXT: No edema, no rashes, 2+ DP NEURO: Nonfocal Please note 35 minutes were spent on coordination of this discharge with patient, nursing staff, and care coordinators
[2018-07-03 08:17] LABS: BUN/Creatinine Ratio 19 (6-26); Blood Urea Nitrogen 26 mg/dL (8-23); Calcium 9.2 mg/dL (8.6-10.3); Carbon Dioxide 28 mEq/L (23-29); Chloride 104 mEq/L (98-107); Glucose 109 mg/dL (70-105); Osmolality,Calculated 297 (280-300); Potassium 4.6 mEq/L (3.5-5.1); Sodium 141 mEq/L (136-145); eGFR For Non-African Americans 53 (> 60)
[2018-07-03] MEDS: Ascorbic Acid 500 MG TABLET PO SCH (08:46)
[2018-07-03] MEDS: Metoprolol XL (24 HR) Succ 25 MG TAB.ER.24H PO SCH (08:46)
[2018-07-03] MEDS: predniSONE 20 MG TABLET PO SCH (08:46)
[2018-07-03] MEDS: Nicotine 21 MG PATCH.TD24 TD SCH (08:46)
[2018-07-03] MEDS: Budesonide/Formoterol 160/4.5 1 PUFF INH IH SCH (10:13)
[2018-07-03 11:28] VITALS: BP 166/73
== END 2018-07-03 13:25 | disposition home or self-care (01) ==
LOC: EDBD → 2ANU 03:07 → EMEROOARM 03:07 → MERGE 06:09 → SUATTDRO 06:09 → 2ANU 06:38
PROVIDERS: ADMIT Pediatrics; ATTEND Internal Medicine